=== PATIENT | male | born 1970 | race Caucasian/White ===

== ENCOUNTER 2016-10-31 06:10 | Inpatient (IN) | payer MEDICAID ==
[2016-10-31] MEDS ORDERED: ONDANSETRON 4 MG/2 ML VIAL ONE (06:41)
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
[2016-10-31] MEDS ORDERED: ONDANSETRON 4 MG/2 ML VIAL IVP ONE ×2 (06:43→11:00)
[2016-10-31] MEDS ORDERED: NS 1,000 ML IV ONE ×3 (06:43→06:48)
[2016-10-31] MEDS ORDERED: LORazepam 2 MG/ML INJ IVP ONE (06:49)
[2016-10-31 06:53] LABS: % IMMATURE GRANULYOCYTES 0.7 % (0.0-1.1); ABSOLUTE IMMATURE GRANULOCYTES 0.04 10^3/uL (0.00-0.10); ADD DIFF? NO; ADD MORPH? NO; ADD SCAN? NO; ATYPICAL LYMPHOCYTE FLAG 0 (0-99); FRAGMENT RBC FLAG 0 (0-99); HEMOGLOBIN 15.7 g/dL (13.7-17.5); LEFT SHIFT FLG 0 (0-99); LIPEMIA HEMOLYSIS FLAG 90 (0-99); MEAN CELL HEMOGLOBIN 30.4 pg (27.9-34.1); MEAN CELL HEMOGLOBIN CONCENTR. 37.4 g/dL (32.4-36.7); MEAN CELL VOLUME 81.2 fL (81.5-99.8); MEAN PLATELET VOLUME 9.4 fL (8.7-11.7); PLATELET CLUMPS FLAG 0 (0-99); PLATELET COUNT 114 10^3/uL (150-400); RED BLOOD CELL COUNT 5.17 10^6/uL (4.40-6.38)
[2016-10-31 07:06] LABS: ALANINE AMINOTRANSFERASE 106 IU/L (21-72); ALBUMIN 4.9 g/dL (3.5-5.0); ALKALINE PHOSPHATASE 114 IU/L (38-126); ANION GAP 23 mEq/L (8-16); ASPARTATE AMINOTRANSFERASE 129 IU/L (17-59); BILIRUBIN,TOTAL 1.3 mg/dL (0.1-1.4); BILIRUBIN-CONJUGATED 0.4 mg/dL (0.0-0.5); BILIRUBIN-UNCONJUGATED 0.9 mg/dL (0.0-1.1); CALCIUM 9.2 mg/dL (8.5-10.4); CARBON DIOXIDE 26 mEq/l (22-31); CHLORIDE 76 mEq/L (97-110); CREATININE 0.7 mg/dL (0.7-1.3); ETHANOL SERUM 102 mg/dL (0-10); GLOMERULAR FILTRATION RATE > 60; GLUCOSE 129 mg/dL (70-100); SODIUM 125 mEq/L (134-144); TOTAL PROTEIN 8.1 g/dL (6.3-8.2)
[2016-10-31 07:17] LABS: POTASSIUM 2.7 mEq/L (3.5-5.2)
[2016-10-31] MEDS ORDERED: POTASSIUM CL 20 MEQ TAB PO ONE (07:27)
[2016-10-31] MEDS ORDERED: MAGNESIUM SULF 2 GM/WATER 50 ML IV ONE (07:27)
[2016-10-31] MEDS ORDERED: POTASSIUM Cl (KCl) 50 ML IV ONE (07:27)
[2016-10-31] MEDS ORDERED: LORazepam 2 MG/ML INJ IV ONE (11:00)
[2016-10-31] MEDS ORDERED: PROTOCOL CALCIUM 1 DOSE IV PRN (11:22)
[2016-10-31] MEDS ORDERED: ONDANSETRON DISINTEGRATING 4 MG TAB PO PRN (11:22)
[2016-10-31] MEDS ORDERED: THIAMINE HCL 500 MG in NS 100 ML IV ONE (11:22)
[2016-10-31] MEDS ORDERED: oxyCODONE IR 5 MG TAB PO PRN (11:22)
[2016-10-31] MEDS ORDERED: MAG HYDROX/AL HYDROX/SIMETH 30 ML UDCUP PO PRN (11:22)
[2016-10-31] MEDS ORDERED: PROTOCOL POTASSIUM 1 DOSE MISC PRN ×2 (11:22→22:41)
[2016-10-31] MEDS ORDERED: ACETAMINOPHEN 325 MG TAB PO PRN (11:22)
[2016-10-31] MEDS ORDERED: ALBUTEROL 3 ML DEYVIAL IH PRN (11:22)
[2016-10-31] MEDS ORDERED: PROTOCOL K PHOSPHATE 1 DOSE IV PRN (11:22)
[2016-10-31] MEDS ORDERED: PROTOCOL MAGNESIUM 1 DOSE IV PRN (11:22)
[2016-10-31] MEDS ORDERED: HALOPERIDOL LACT 5 MG/ML INJ IVP PRN (11:22)
[2016-10-31] MEDS ORDERED: ONDANSETRON 4 MG/2 ML VIAL IVP PRN (11:22)
[2016-10-31] MEDS ORDERED: HYDROmorphONE/DILAUDID 1 MG/ML SYR IVP PRN (11:22)
[2016-10-31] MEDS ORDERED: PROMETHAZINE HCL 25 MG/ML INJ IVP PRN (11:22)
[2016-10-31] MEDS ORDERED: LORazepam 1 MG TAB PO PRN (11:22)
[2016-10-31] MEDS ORDERED: NS 1,000 ML IV SCH (11:30)
--- NOTE | 2016-10-31 11:32 | CPEKG ---
Heart Rate: 78 RR Interval: 769 P-R Interval: 164 QRSD Interval: 94 QT Interval: 448 QTC Interval: 511 P Cranks: 35 QRS Cranks: 65 T Wave Cranks: 63 EKG Severity - ABNORMAL ECG - EKG Impression: SINUS RHYTHM EKG Impression: ST ELEV, PROBABLE NORMAL EARLY REPOL PATTERN EKG Impression: PROLONGED QT INTERVAL Electronically Signed By: Vincent Castañeda 31-Oct-2016 13:29:08
[2016-10-31] MEDS: FOLIC ACID 1 MG TAB PO SCH (11:54)
[2016-10-31] MEDS: MULTIVITAMINS 1 EACH TAB PO SCH (11:54)
[2016-10-31 12:41] LABS: MAGNESIUM 2.1 mg/dL (1.6-2.3); POTASSIUM 3.3 mEq/L (3.5-5.2)
[2016-10-31] MEDS: POTASSIUM Cl (KCl) 100 ML IV SCH ×3 (13:23→15:33)
[2016-10-31] MEDS ORDERED: chlordiazePOXIDE 25 MG CAP PO ONE (13:34)
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
[2016-10-31] MEDS: LORazepam 2 MG/ML INJ IVP PRN ×3 (17:26→23:29)
[2016-10-31 17:50] LABS: IONIZED CALCIUM 1.11 MMOL/L (1.12-1.30)
[2016-10-31] MEDS ORDERED: CALCIUM GLUCONATE 50 ML IV ONE (17:51)
[2016-10-31 18:40] LABS: POTASSIUM 3.7 mEq/L (3.5-5.2)
[2016-10-31] MEDS ORDERED: POTASSIUM Cl (KCl) 100 ML IV SCH (21:16)
[2016-10-31] MEDS ORDERED: POTASSIUM CL 10 MEQ TAB PO ONE (22:53)
[2016-10-31] MEDS: chlordiazePOXIDE 25 MG CAP PO PRN (23:54)
[2016-11-01] MEDS: LORazepam 2 MG/ML INJ IVP PRN ×11 (01:20→23:57)
[2016-11-01 05:48] LABS: IONIZED CALCIUM 1.07 MMOL/L (1.12-1.30)
[2016-11-01 05:51] LABS: % IMMATURE GRANULYOCYTES 0.2 % (0.0-1.1); ABSOLUTE IMMATURE GRANULOCYTES 0.01 10^3/uL (0.00-0.10); ADD DIFF? NO; ADD MORPH? NO; ADD SCAN? NO; ATYPICAL LYMPHOCYTE FLAG 10 (0-99); FRAGMENT RBC FLAG 0 (0-99); HEMATOCRIT 35.5 % (40.0-51.0); HEMOGLOBIN 12.4 g/dL (13.7-17.5); LEFT SHIFT FLG 0 (0-99); LIPEMIA HEMOLYSIS FLAG 90 (0-99); MEAN CELL HEMOGLOBIN CONCENTR. 34.9 g/dL (32.4-36.7); PLATELET CLUMPS FLAG 0 (0-99); PLATELET COUNT 95 10^3/uL (150-400); RED BLOOD CELL COUNT 4.13 10^6/uL (4.40-6.38); RED CELL DISTRIBUTION WIDTH 13.8 % (11.5-15.2)
[2016-11-01 06:11] LABS: ANION GAP 8 mEq/L (8-16); CALCIUM 8.3 mg/dL (8.5-10.4); CARBON DIOXIDE 29 mEq/l (22-31); CHLORIDE 96 mEq/L (97-110); CREATININE 0.7 mg/dL (0.7-1.3); GLOMERULAR FILTRATION RATE > 60; GLUCOSE 89 mg/dL (70-100); MAGNESIUM 2.3 mg/dL (1.6-2.3); POTASSIUM 3.4 mEq/L (3.5-5.2); SODIUM 133 mEq/L (134-144)
[2016-11-01] MEDS: ENOXAPARIN 40 MG/0.4 ML SYR SC SCH (07:44)
[2016-11-01] MEDS: FOLIC ACID 1 MG TAB PO SCH (07:45)
[2016-11-01] MEDS: MULTIVITAMINS 1 EACH TAB PO SCH (07:45)
[2016-11-01] MEDS ORDERED: CALCIUM GLUCONATE 50 ML IV ONE ×2 (07:55→09:00)
[2016-11-01] MEDS ORDERED: POTASSIUM CL 10 MEQ TAB PO ONE ×2 (07:56→14:15)
[2016-11-01] MEDS: chlordiazePOXIDE 25 MG CAP PO PRN ×2 (08:50→16:46)
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
[2016-11-01 14:05] LABS: POTASSIUM 3.4 mEq/L (3.5-5.2)
--- NOTE | 2016-11-01 15:40 | HOSPPROG ---
Hospitalist Progress Note Assessment/Plan: 1. Acute alcohol withdrawal 2. Hyponatremia 3. ST segment elevation 4. Hypokalemia 5. Alcoholic hepatitis Plan: - Continue CIWA protocol in the step-down unit considering the patient is still tachycardic and very tremulous - recommend alcohol cessation - consider Precedex and additional benzodiazepines if delirium worsens. Subjective: He reports feeling tremulous. He denies any hallucinations. Denies any nausea vomiting or diarrhea. Objective: Vital Signs Temp Pulse Resp BP Pulse Ox 36.6 C 105 H 18 176/105 H 89 L 11/01/16 11:55 11/01/16 11:55 11/01/16 11:55 11/01/16 11:55 11/01/16 11:55 Laboratory Results 11/01/16 05:30 11/01/16 13:15 10/31/16 11/01/16 11/02/16 05:59 05:59 05:59 Intake Total 3550 2650 Output Total 3125 300 Balance 425 2350 - Physical Exam Constitutional: no apparent distress, appears nourished, not in pain, uncomfortable Cardiovascular: tachycardia, No systolic murmur, No JVD, No edema Respiratory: no respiratory distress, no rales or rhonchi, clear to auscultation Gastrointestinal: normoactive bowel sounds, soft, non-tender abdomen, no palpable masses, No guarding, No rebound Neurologic: AAOx3, sensation intact bilaterally ICD10 Worksheet Patient Problems: Problems Problem Status Onset Alcohol withdrawal Acute Hypokalemia Acute Hyponatremia Acute
[2016-11-01 19:12] LABS: POTASSIUM 4.2 mEq/L (3.5-5.2)
[2016-11-01] MEDS: THIAMINE HCL 500 MG in NS 100 ML IV SCH (20:28)
[2016-11-02] MEDS: chlordiazePOXIDE 25 MG CAP PO PRN (00:40)
[2016-11-02] MEDS: LORazepam 2 MG/ML INJ IVP PRN ×2 (02:33→08:11)
[2016-11-02 03:52] VITALS: RESP 17
[2016-11-02 04:01] LABS: % IMMATURE GRANULYOCYTES 0.2 % (0.0-1.1); ABSOLUTE IMMATURE GRANULOCYTES 0.01 10^3/uL (0.00-0.10); ADD DIFF? NO; ADD MORPH? NO; ADD SCAN? NO; ATYPICAL LYMPHOCYTE FLAG 10 (0-99); FRAGMENT RBC FLAG 0 (0-99); HEMATOCRIT 36.6 % (40.0-51.0); HEMOGLOBIN 12.2 g/dL (13.7-17.5); IONIZED CALCIUM 1.18 MMOL/L (1.12-1.30); LEFT SHIFT FLG 0 (0-99); LIPEMIA HEMOLYSIS FLAG 80 (0-99); MEAN CELL HEMOGLOBIN 29.7 pg (27.9-34.1); MEAN CELL HEMOGLOBIN CONCENTR. 33.3 g/dL (32.4-36.7); MEAN CELL VOLUME 89.1 fL (81.5-99.8); MEAN PLATELET VOLUME 10.1 fL (8.7-11.7); PLATELET CLUMPS FLAG 0 (0-99); PLATELET COUNT 98 10^3/uL (150-400); RED BLOOD CELL COUNT 4.11 10^6/uL (4.40-6.38); RED CELL DISTRIBUTION WIDTH 14.2 % (11.5-15.2)
[2016-11-02 04:17] LABS: ANION GAP 9 mEq/L (8-16); CALCIUM 8.7 mg/dL (8.5-10.4); CARBON DIOXIDE 25 mEq/l (22-31); CHLORIDE 101 mEq/L (97-110); CREATININE 0.7 mg/dL (0.7-1.3); GLOMERULAR FILTRATION RATE > 60; GLUCOSE 118 mg/dL (70-100); MAGNESIUM 1.8 mg/dL (1.6-2.3); POTASSIUM 5.1 mEq/L (3.5-5.2); SODIUM 135 mEq/L (134-144)
[2016-11-02 07:44] VITALS: BP 138/88; PULSE 102; TEMP 98.8; O2SAT 97
[2016-11-02] MEDS: ENOXAPARIN 40 MG/0.4 ML SYR SC SCH (08:11)
[2016-11-02] MEDS: MULTIVITAMINS 1 EACH TAB PO SCH (08:11)
[2016-11-02] MEDS: FOLIC ACID 1 MG TAB PO SCH (08:11)
[2016-11-02] MEDS: THIAMINE HCL 500 MG in NS 100 ML IV SCH (08:11)
[2016-11-02] MEDS ORDERED: MAGNESIUM SULF 1 GM/DEXTROSE 100 ML IV ONE (09:08)
[2016-11-02] MEDS ORDERED: MAGNESIUM SULF 1 GM/DEXTROSE 100 ML BAG IV ONE (09:13)
[2016-11-02] MEDS ORDERED: NS 1,000 ML IV ONE (10:33)
--- NOTE | 2016-11-02 16:11 | GDS ---
[f rep st] DISCHARGE SUMMARY DISCHARGE DIAGNOSES: 1. Acute alcohol withdrawal without delirium. 2. Hyponatremia, resolved. 3. Hypokalemia. 4. Alcoholic hepatitis. HOSPITAL COURSE STATED BY PROBLEM: Acute alcohol withdrawal: The patient presented to the hospital after taking his last drink on Thursday morning. He presented tremulous. He was placed in the step-down unit where he was started on the CIWA protocol and loaded with Libriu m, and also required p.r.n. Ativan throughout his hospital stay. He has continued to be tachycardic which has improved throughout his stay. A TSH done on day of discharge was within normal limits. On day of discharge, the patient states he is feeling much better and would like to go home. He ng s wish to quit drinking. PHYSICAL EXAM: VITAL SIGNS: On day of discharge, blood pressure 138/88, pulse was 102, respiratory rate 17, O2 saturation 97% on room air. Temperature afebrile. GENERAL: No acute distress. Not t remulous. HEART: S1, S2 mildly tachycardic. PERTINENT LABS AND STUDIES DONE THIS HOSPITAL STAY: TSH was within normal range. DISCHARGE MEDICATIONS: Please refer to discharge medication reconciliation in [facility] for details. DISCHARGE INSTRUCTIONS: The patient was discharged home under the care of his girlfriend. He was g iven a small taper of Librium that consisted of 25 mg to be taken 3 times a day for the next 24 hour s, then 25 mg twice a day for tomorrow, and then 10 mg twice a day on Thursday. He was advised to no t drive, drink, or operate heavy machinery while taking Librium. /[id number]/MODL
[2016-11-03] MEDS ORDERED: THIAMINE HCL 100 MG TAB PO SCH (09:00)
== END 2016-11-02 13:11 | disposition home or self-care (01) | DRG 897 ==
LOC: F2N 09:53 → UNDODISIN 11-02 12:16
PROVIDERS: ADMIT Student in an Organized Health Care Education/Training Program; ATTEND Internal Medicine
DX: F10.230 Alcohol dependence with withdrawal, uncomplicated (principal); E87.1 Hypo-osmolality and hyponatremia; K70.10 Alcoholic hepatitis without ascites; E87.6 Hypokalemia; Y90.6 Blood alcohol level of 120-199 mg/100 ml; E83.51 Hypocalcemia
CPT/HCPCS: 82947-QW; 96365; 96366; 97112-GP; 97116-GP; 97161-GP; 97165-GO; G0480; J0610; J1650; J2060; J2405; J2550; J3411; J3475